=== PATIENT | male | born 1945 | race Caucasian/White ===

== ENCOUNTER 2017-02-21 06:07 | Day surgery (SDC) | payer MEDICARE, OTHER ==
[~2017-02-21] VITALS: Ht 175.3 cm; Wt 84.2 kg
[~2017-02-21 06:07] MED LIST: LISI5TAB7 PO; METH5TAB2 PO; OXYC30TA66 PO; RIVA20TA PO
[2017-02-21] MEDS ORDERED: BUPIVACAINE/PF 0.5% ONE (07:01)
[2017-02-21] MEDS ORDERED: BACITRACIN 50,000 UNIT ONE (07:01)
[2017-02-21] MEDS ORDERED: METH-356 PO (07:18)
[2017-02-21] MEDS ORDERED: LACTATED RINGERS 1,000 ML IV SCH (07:18)
[2017-02-21 07:19] VITALS: BP 126/91
[2017-02-21] MEDS ORDERED: MIDAZOLAM 1 MG/ML, 2ML ONE (08:31)
[2017-02-21] MEDS ORDERED: FENTANYL PF 250 MCG/5ML ONE (08:31)
[2017-02-21] MEDS ORDERED: OXYcodone 5 MG/5 ML ORAL.SOL UDC PO PRN (09:30)
[2017-02-21] MEDS ORDERED: HYDROmorphone 1 MG/ML, 1ML IV PRN (09:30)
[2017-02-21] MEDS ORDERED: LABETALOL 5MG/ML, 20ML IV PRN (09:30)
[2017-02-21] MEDS ORDERED: MEPERIDINE/PF 25MG/0.5ML IVPush PRN (09:30)
[2017-02-21] MEDS ORDERED: hydrALAzine 20 MG/ML, 1ML IV PRN (09:30)
[2017-02-21] MEDS ORDERED: ONDANSETRON 2MG/ML, 2ML IVPush PRN (09:30)
[2017-02-21] MEDS ORDERED: MIDAZOLAM 1 MG/ML, 2ML IV PRN (09:30)
[2017-02-21] MEDS ORDERED: ALBUTEROL/IPRATROPIUM 2.5MG/0.5MG, 3 ML NPPB PRN (09:30)
[2017-02-21] MEDS ORDERED: ACETAMINOPHEN 325 MG TABLET PO PRN (09:30)
[2017-02-21] MEDS ORDERED: PROMETHAZINE 25 MG/ML, 1ML IV PRN (09:30)
[2017-02-21] MEDS ORDERED: FENTANYL PF 100 MCG/2ML IV PRN (09:30)
[2017-02-21] MEDS ORDERED: EPHEDRINE 50 MG/ML, 1ML ONE (10:48)
[2017-02-21] MEDS ORDERED: CEFAZOLIN 1,000 MG ONE (10:48)
[2017-02-21] MEDS ORDERED: ONDANSETRON 2MG/ML, 2ML ONE (10:48)
[2017-02-21] MEDS ORDERED: PROPOFOL 10 MG/ML, 20ML ONE (10:48)
== END 2017-02-21 11:21 | disposition home or self-care (01) ==
LOC: OUT 06:07
PROVIDERS: ATTEND Neurological Surgery
DX: G56.01 Carpal tunnel syndrome, right upper limb (principal); I10 Essential (primary) hypertension; G89.29 Other chronic pain; M54.5 Low back pain; B19.20 Unspecified viral hepatitis C without hepatic coma; Z88.0 Allergy status to penicillin; Z98.890 Other specified postprocedural states
CPT/HCPCS: 36415; 64721; 85610; 85730; J0690; J2250; J2405; J2704; J3010; J3490; J7120